=== PATIENT | male | born 1970 | race Two or more races ===

== ENCOUNTER 2024-05-20 21:12 | Emergency (ER) | payer OTHER ==
[~2024-05-20] VITALS: Ht 162.6 cm; Wt 75.0 kg
[2024-05-20 21:18] VITALS: TEMP 98
[2024-05-20 22:00] VITALS: BP 143/89; PULSE 96; RESP 16; O2SAT 100
[2024-05-20] MEDS: LIDOCAINE 1% 10 ML VIAL SQ ONE (23:47)
== END 2024-05-21 01:47 | disposition left against medical advice (07) ==
LOC: EMS 21:12 → EDBD 21:12 → EMS 05-21 01:47
DX: S01.81XA Laceration without foreign body of other part of head, initial encounter (principal); J34.89 Other specified disorders of nose and nasal sinuses; W22.8XXA Striking against or struck by other objects, initial encounter; Y93.89 Activity, other specified; Y92.89 Other specified places as the place of occurrence of the external cause; Y99.8 Other external cause status
CPT/HCPCS: 99285; 70450; 70486; 72125; 96372; J3490